=== PATIENT | male | born 1940 | race Caucasian/White ===

== ENCOUNTER 2017-09-06 13:42 | Inpatient (IN) | payer MEDICARE ==
[2017-09-06] VITALS (9 sets, daily range): BP systolic 134–241; BP diastolic 86–110; PULSE 77–96; RESP 16–20; TEMP 98.5–99; O2SAT 93–97
[~2017-09-06] VITALS: Ht 157.5 cm; Wt 81.9 kg
[2017-09-06] MEDS ORDERED: LABETALOL HCL 100 MG/20 ML VIAL IV PUSH ONE (14:15)
--- NOTE | 2017-09-06 14:15 | PD ---
HPI Chief Complaint: Hypertension Time Seen by Provider: 13:53 Travel History International Travel<30 days: No Contact w/Intl Traveler<30days: No Traveled to known affect area: No History of Present Illness HPI The patient is a 77-year-old male who presents to the emergency department for hypertension and dull vision. The patient states he has a 2-3 year history of hypertension, checks his blood pressure at [place] normally gets reading somewhere between 180 and 190 for a systolic. However, the patient currently takes no medications for hypertension. The patient states he was involved in an argument with his physician 3 years ago and has not sought medical care since the argument. The patient notes over the last 2 weeks he has had double vision, present with both eyes open, absent with one eye closed. He denies any headache, chest pain, shortness breath, nausea, vomiting, or abdominal pain. The double vision is only present when both eyes are open. He does have a history of an ocular problem with the left eye which has started recently. He denies any focal weakness of the upper or lower extremities. He denies any change in sensation of the upper or lower extremities. The patient's diplopia is described as a horizontal diplopia hand by hand as opposed to hand on top of hand when looking straight. PFSH Past Medical History Narrative Medical Hypertension, CVA Past Surgical History Narrative Surgical Noncontributory Social History Tobacco Use: No (quit) Allergies-Medications (Allergen,Severity, Reaction): Coded Allergies: No Known Allergies (Verified Allergy, Unknown, 09/06/17) Review of Systems Except as stated in HPI: all other systems reviewed are Neg Eyes: Positive: Diploplia, No: Photophobia, Redness, Pain, Blindness HENT: No: Headaches Cardiovascular: No: Chest Pain or Discomfort Respiratory: No: Shortness of Breath Gastrointestinal: No: Nausea, Vomiting, Abdominal Pain Musculoskeletal: No: Weakness Neurologic: No: Dizziness, Focal Abnormalities, Headache, Change in Mentation, Paresthesia, Sensory Disturbance Physical Exam Narrative GENERAL: Awake, alert, pleasant 77-year-old male who appears his stated age and is in no acute respiratory distress. SKIN: Focused skin assessment warm/dry. HEAD: Atraumatic. Normocephalic. EYES: Pupils equal and round. Pupils are 3 mm bilateral and reactive. EOMs are intact. Patient is able to see fingers at a distance of 2 feet from the left eye and right eye individually, however, with both eyes open he states he sees double the digits. The patient appears to have esotropia of the left eye. ENT: No nasal bleeding or discharge. Mucous membranes pink and moist. NECK: Trachea midline. No JVD. CARDIOVASCULAR: Regular rate and rhythm. No murmur appreciated. RESPIRATORY: No accessory muscle use. Clear to auscultation. Breath sounds equal bilaterally. GASTROINTESTINAL: Abdomen soft, non-tender, nondistended. MUSCULOSKELETAL: No obvious deformities. No clubbing. No cyanosis. No edema. NEUROLOGICAL: Awake and alert. No obvious cranial nerve deficits. Motor grossly within normal limits. Normal speech. EOMs are intact. No drift of the upper or lower extremities. Finger to nose is normal. [id number] is normal. Sensation is symmetric on the arms, legs, and face. PSYCHIATRIC: Appropriate mood and affect; insight and judgment normal. Data Data Last Documented VS Vital Signs Date Time Temp Pulse Resp B/P (MAP) Pulse Ox O2 Delivery O2 Flow Rate FiO2 09/06/17 16:52 96 20 189/89 (122) 95 09/06/17 16:14 Room Air 09/06/17 13:44 98.5 Orders Orders Complete Blood Count With Diff (09/06/17 14:03) Comprehensive Metabolic Panel (09/06/17 14:03) Prothrombin Time / Inr (Pt) (09/06/17 14:03) Act Partial Throm Time (Ptt) (09/06/17 14:03) Ct Brain W/O Iv Contrast(Rout) (09/06/17 14:03) Ecg Monitoring (09/06/17 14:03) Iv Access Insert/Monitor (09/06/17 14:03) Oximetry (09/06/17 14:03) Sodium Chloride 0.9% Flush (Ns Flush) (09/06/17 14:15) Labetalol Inj (Trandate Inj) (09/06/17 14:15) Mri Brain W/O Contrast (09/06/17 ) Aspirin (Aspirin) (09/06/17 17:00) Admit Order (Ed Use Only) (09/06/17 17:00) Labs Laboratory Tests Test 09/06/17 14:10 White Blood Count 7.2 TH/MM3 Red Blood Count 4.49 MIL/MM3 Hemoglobin 10.5 GM/DL Hematocrit 33.7 % Mean Corpuscular Volume 75.1 FL Mean Corpuscular Hemoglobin 23.5 PG Mean Corpuscular Hemoglobin Concent 31.3 % Red Cell Distribution Width 14.5 % Platelet Count 302 TH/MM3 Mean Platelet Volume 8.0 FL Neutrophils (%) (Auto) 63.5 % Lymphocytes (%) (Auto) 23.1 % Monocytes (%) (Auto) 8.8 % Eosinophils (%) (Auto) 4.0 % Basophils (%) (Auto) 0.6 % Neutrophils # (Auto) 4.6 TH/MM3 Lymphocytes # (Auto) 1.7 TH/MM3 Monocytes # (Auto) 0.6 TH/MM3 Eosinophils # (Auto) 0.3 TH/MM3 Basophils # (Auto) 0.0 TH/MM3 CBC Comment AUTO DIFF Differential Comment AUTO DIFF CONFIRMED Prothrombin Time 10.3 SEC Prothromb Time International Ratio 0.9 RATIO Activated Partial Thromboplast Time 25.9 SEC Blood Urea Nitrogen 15 MG/DL Creatinine 0.81 MG/DL Random Glucose 77 MG/DL Total Protein 7.5 GM/DL Albumin 3.7 GM/DL Calcium Level 8.6 MG/DL Alkaline Phosphatase 52 U/L Aspartate Amino Transf (AST/SGOT) 40 U/L Alanine Aminotransferase (ALT/SGPT) 63 U/L Total Bilirubin 0.3 MG/DL Sodium Level 140 MEQ/L Potassium Level 3.9 MEQ/L Chloride Level 104 MEQ/L Carbon Dioxide Level 31.5 MEQ/L Anion Gap 5 MEQ/L Estimat Glomerular Filtration Rate 93 ML/MIN MDM Medical Decision Making Medical Screen Exam Complete: Yes Emergency Medical Condition: Yes Medical Record Reviewed: Yes Interpretation(s) Laboratory Tests Test 09/06/17 14:10 White Blood Count 7.2 TH/MM3 Red Blood Count 4.49 MIL/MM3 Hemoglobin 10.5 GM/DL Hematocrit 33.7 % Mean Corpuscular Volume 75.1 FL Mean Corpuscular Hemoglobin 23.5 PG Mean Corpuscular Hemoglobin Concent 31.3 % Red Cell Distribution Width 14.5 % Platelet Count 302 TH/MM3 Mean Platelet Volume 8.0 FL Neutrophils (%) (Auto) 63.5 % Lymphocytes (%) (Auto) 23.1 % Monocytes (%) (Auto) 8.8 % Eosinophils (%) (Auto) 4.0 % Basophils (%) (Auto) 0.6 % Neutrophils # (Auto) 4.6 TH/MM3 Lymphocytes # (Auto) 1.7 TH/MM3 Monocytes # (Auto) 0.6 TH/MM3 Eosinophils # (Auto) 0.3 TH/MM3 Basophils # (Auto) 0.0 TH/MM3 CBC Comment AUTO DIFF Differential Comment AUTO DIFF CONFIRMED Prothrombin Time 10.3 SEC Prothromb Time International Ratio 0.9 RATIO Activated Partial Thromboplast Time 25.9 SEC Blood Urea Nitrogen 15 MG/DL Creatinine 0.81 MG/DL Random Glucose 77 MG/DL Total Protein 7.5 GM/DL Albumin 3.7 GM/DL Calcium Level 8.6 MG/DL Alkaline Phosphatase 52 U/L Aspartate Amino Transf (AST/SGOT) 40 U/L Alanine Aminotransferase (ALT/SGPT) 63 U/L Total Bilirubin 0.3 MG/DL Sodium Level 140 MEQ/L Potassium Level 3.9 MEQ/L Chloride Level 104 MEQ/L Carbon Dioxide Level 31.5 MEQ/L Anion Gap 5 MEQ/L Estimat Glomerular Filtration Rate 93 ML/MIN Last Impressions Head CT 09/06/17 1403 Signed Impressions: Service Date/Time: Wednesday, September 06, 2017 14:21 - CONCLUSION: No acute intracranial abnormality. Aaron Woodward MD Brain MRI 09/06/17 0000 Signed Impressions: Service Date/Time: Wednesday, September 06, 2017 16:13 - CONCLUSION: 1. Minimal T2 signal abnormalities and restricted diffusion in the region of the left thalamus consistent with acute infarction. 2. The minimal nonspecific white matter changes. Aaron Woodward MD Differential Diagnosis Differential diagnosis includes cranial nerve palsy, esotropia, CVA, TIA, intracranial hemorrhage, hypertensive urgency, hypertensive emergency. Narrative Course IV was established, labs are drawn and sent, and the patient was placed on cardiac telemetry monitoring and continuous pulse oximetry monitoring. CT the brain was obtained. The patient was administered labetalol 20 mg intravenously. The patient was reevaluated at 2:20 PM, his diplopia has resolved with both eyes open. I'm unsure if this is related to cranial nerve palsy versus infarct. The patient has no current symptoms at 2:[address] of the head reveals no acute intracranial abnormality. The patient appears to have possible cranial nerve involvement of the 6 cranial nerve with estropia of the left eye. Therefore, MRI was ordered to rule out brainstem/chanda/ midbrain infarct. Laboratory evaluation reveals a hemoglobin of 10.5 and an AST of 40, otherwise labs are unremarkable. Creatinine is normal. MRI of the brain reveals minimal T2 signal abnormalities and restricted diffusion in the region of the left thalamus consistent with acute infarction. Therefore, the on-call medical team was paged for admission. The patient's blood pressure came down to 189/89, therefore, no further reduction was obtained as the patient had an acute infarction. The patient was administered aspirin. The patient will be admitted to the on-call medical service and will benefit from echocardiogram, carotid ultrasound, and lipid panel. The patient is agreeable to admission. Physician Communication Physician Communication [facility] were paged for admission. I discussed the patient with Dr. Clements who agrees with admission. Diagnosis Primary Impression: CVA (cerebral vascular accident) Qualified Codes: I63.9 - Cerebral infarction, unspecified Admitting Information Admitting Physician Requests: Admit Condition: Stable Frederick Omalley MD Sep 06, 2017 14:15
[2017-09-06 14:26] LABS: AUTOMATED NEUTROPHIL # 4.6 TH/MM3 (1.8-7.7); BASOPHIL % 0.6 % (0.0-2.0); EOSINOPHIL # 0.3 TH/MM3 (0-0.4); HEMATOCRIT 33.7 % (39.0-51.0); LYMPH % 23.1 % (9.0-44.0); LYMPHOCYTE # 1.7 TH/MM3 (1.0-4.8); MEAN CELL VOLUME 75.1 FL (80.0-100.0); MEAN CORPUSCULAR HEMOGLOBIN 23.5 PG (27.0-34.0); MEAN CORPUSCULAR HGB CONC 31.3 % (32.0-36.0); MONO % 8.8 % (0.0-8.0); NEUT % 63.5 % (16.0-70.0); PLATELET COUNT 302 TH/MM3 (150-450); RED BLOOD COUNT 4.49 MIL/MM3 (4.50-5.90); RED CELL DISTRIBUTION WIDTH 14.5 % (11.6-17.2); WHITE BLOOD COUNT 7.2 TH/MM3 (4.0-11.0)
[2017-09-06 14:29] LABS: HEMO FLAGS AUTO DIFF
--- NOTE | 2017-09-06 14:39 | RADRPT ---
EXAM DATE/TIME: 09/06/2017 14:21 [facility] COMPARISON: No previous studies available for comparison. INDICATIONS : Binocular vision. Evaluate for cerebrovascular accident. RADIATION DOSE: 67.04 CTDIvol (mGy) MEDICAL HISTORY : Cerebrovascular disease. Hypertension. SURGICAL HISTORY : None. ENCOUNTER: Initial ACUITY: 2 weeks PAIN SCALE: 0/10 LOCATION: cranial TECHNIQUE: Multiple contiguous axial images were obtained of the head. Using automated exposure control and adj ustment of the mA and/or kV according to patient size, radiation dose was kept as low as reasonably a chievable to obtain optimal diagnostic quality images. DICOM format image data is available electro nically for review and comparison. FINDINGS: CEREBRUM: The ventricles are normal for age. No evidence of midline shift, mass lesion, hemorrhage or acute in farction. No extra-axial fluid collections are seen. POSTERIOR FOSSA: The cerebellum and brainstem are intact. The 4th ventricle is midline. The cerebellopontine angle i s unremarkable. EXTRACRANIAL: The visualized portion of the orbits is intact. SKULL: The calvaria is intact. No evidence of skull fracture. CONCLUSION: No acute intracranial abnormality. Aaron Woodward MD on September 06, 2017 at 14:37 Board Certified Radiologist. This report was verified electronically.
[2017-09-06 14:41] LABS: APTT (PATIENT) 25.9 SEC (24.3-30.1); INTERNATIONAL NORMALIZED RATIO 0.9 RATIO; PROTHROMBIN TIME - PATIENT 10.3 SEC (9.8-11.6)
[2017-09-06 14:50] LABS: CHLORIDE 104 MEQ/L (98-107); POTASSIUM 3.9 MEQ/L (3.5-5.1); SODIUM (NA) 140 MEQ/L (136-145)
[2017-09-06 14:54] LABS: ANION GAP 5 MEQ/L (5-15); BICARBONATE 31.5 MEQ/L (21.0-32.0); BLOOD UREA NITROGEN 15 MG/DL (7-18)
[2017-09-06 14:57] LABS: ALT (GPT) 63 U/L (12-78); AST (GOT) 40 U/L (15-37); GLOMERULAR FILTRATION RATE 93 ML/MIN (>89)
[2017-09-06 14:58] LABS: TOTAL BILIRUBIN ADULT 0.3 MG/DL (0.2-1.0)
[2017-09-06 15:00] LABS: ALKALINE PHOSPHATASE 52 U/L (45-117)
[2017-09-06 15:03] LABS: SCAN/DIFF AUTO DIFF CONFIRMED
--- NOTE | 2017-09-06 16:26 | RADRPT ---
EXAM DATE/TIME: 09/06/2017 16:13 This report includes an Addendum and supersedes previous reports for this exam. [facility] COMPARISON: CT BRAIN W/O CONTRAST, September 06, 2017, 14:21. INDICATIONS : CVA. Double vision. MEDICAL HISTORY : Stroke SURGICAL HISTORY : None. ENCOUNTER: Initial ACUITY: 1 day PAIN SCORE: 0/10 LOCATION: head TECHNIQUE: Multiplanar, multisequence MRI of the brain was performed without contrast. FINDINGS: CEREBRUM: Minimal T2 signal abnormality in the region of the left thalamus. The ventricles are normal for age. No evidence of midline shift, mass lesion, hemorrhage or acute infarction. No extraaxial fluid jackeline ections are seen. The pituitary gland and suprasellar cistern are normal in configuration. WHITE MATTER: Scattered areas of high focal flair signal abnormalities are seen in the white matter. POSTERIOR FOSSA: The cerebellum and brainstem are intact. The 4th ventricle is midline. The cerebellopontine angle is unremarkable. The cerebellar tonsils are normal in position. DIFFUSION IMAGING: Minimal restricted diffusion in the region of the left thalamus consistent with acute infarction. EXTRACRANIAL: The visualized portions of the orbits and paranasal sinuses are unremarkable. CONCLUSION: 1. Minimal T2 signal abnormalities and restricted diffusion in the region of the left thalamus consis tent with acute infarction. 2. The minimal nonspecific white matter changes. Aaron Woodward MD on September 06, 2017 at 16:20 Board Certified Radiologist. This report was verified electronically. ADDENDUM: On further review note is made of encephalomalacia and hemosiderin in the right cerebellar hemisphere consistent with remote insult/hemorrhage. [place] MD on September 07, 2017 at 16:20 Board Certified Radiologist. This report was verified electronically.
[2017-09-06] MEDS ORDERED: ASPIRIN 325 MG TAB PO ONE (17:00)
--- NOTE | 2017-09-06 17:29 | HHI.HP ---
[facility] No Primary Care Physician Admission Diagnosis CVA, accelerated hypertension, binocular diplopia Diagnoses: Travel History International Travel<30 Days: No Contact w/Intl Traveler <30 Da: No Traveled to Known Affected Are: No History of Present Illness This is a pleasant 77-year-old [place]ese [place] male with past medical history of CVA 10 years prior without residual deficits and hypertension who presents to the ER today complaining of double vision. The patient has noted horizontal double vision throughout the day. It goes away if he covers one eye. He is still having the symptoms. He denies slurred speech, paresthesias, unilateral weakness. In the emergency department a brain MRI which was ordered which revealed an acute left thalamic CVA. Systolic blood pressure was quite elevated at 240 initially and he received labetalol IV. Symptoms moderate no palliative or provocative factors. Patient does not take blood pressure medication. He does not see a primary care physician since he had an argument with his 3 years ago. Patient does not take aspirin. His states he had a stroke 10 years ago and was on blood thinners at that time but she cannot remember which. He does not smoke although his does smoke in the house. Review of Systems Constitutional: DENIES: Fever, Chills Eyes: COMPLAINS OF: Diplopia, DENIES: Vision loss Ears, nose, mouth, throat: DENIES: Throat pain, Hoarseness Respiratory: DENIES: Cough, Shortness of breath Cardiovascular: DENIES: Chest pain, Palpitations Gastrointestinal: DENIES: Abdominal pain, Vomiting Genitourinary: DENIES: Urgency, Dysuria Musculoskeletal: DENIES: Back pain, Neck pain Integumentary: DENIES: Rash Hematologic/lymphatic: DENIES: Lymphadenopathy Neurologic: DENIES: Abnormal gait, Headache Psychiatric: DENIES: Anxiety, Confusion Past Family Social History Past Medical History Hypertension Previous CVA Past Surgical History None Allergies: Coded Allergies: No Known Allergies (Verified Allergy, Unknown, 09/06/17) Family History Negative for stroke. Social History As per history of present illness. Patient does not smoke. Physical Exam Vital Signs Vital Signs Date Time Temp Pulse Resp B/P (MAP) Pulse Ox O2 Delivery O2 Flow Rate FiO2 09/06/17 16:52 96 20 189/89 (122) 95 09/06/17 16:14 84 16 211/103 (139) 96 Room Air 09/06/17 15:16 78 20 189/101 (130) 97 09/06/17 14:33 77 16 209/101 (137) 97 Room Air 09/06/17 14:08 96 Room Air 09/06/17 13:44 98.5 84 16 241/110 (153) 96 Physical Exam GENERAL: This is a well-nourished, well-developed patient, in no apparent distress. SKIN: No rashes, ecchymoses or lesions. Cool and dry. HEAD: Atraumatic. Normocephalic. EYES: Pupils equal round and reactive. Very subtle inability to fully abduct the right eye. No scleral icterus. No injection or drainage. ENT: Nose without bleeding, purulent drainage or septal hematoma. Throat without erythema, tonsillar hypertrophy or exudate. Uvula midline. Airway patent. NECK: Trachea midline. No JVD or lymphadenopathy. Supple, nontender, no meningeal signs. CARDIOVASCULAR: Regular rate and rhythm without murmurs, gallops, or rubs. RESPIRATORY: Clear to auscultation. Breath sounds equal bilaterally. No wheezes , rales, or rhonchi. GASTROINTESTINAL: Abdomen soft, non-tender, nondistended. No hepato-splenomegaly , or palpable masses. No guarding. MUSCULOSKELETAL: Extremities without clubbing, cyanosis, or edema. No joint tenderness, effusion, or edema noted. NEUROLOGICAL: Awake and alert and oriented. Cranial nerves II through XII intact. Motor and sensory grossly within normal limits. Five out of 5 muscle strength in all muscle groups. Normal speech. Laboratory Laboratory Tests Test 09/06/17 14:10 White Blood Count 7.2 Red Blood Count 4.49 Hemoglobin 10.5 Hematocrit 33.7 Mean Corpuscular Volume 75.1 Mean Corpuscular Hemoglobin 23.5 Mean Corpuscular Hemoglobin Concent 31.3 Red Cell Distribution Width 14.5 Platelet Count 302 Mean Platelet Volume 8.0 Neutrophils (%) (Auto) 63.5 Lymphocytes (%) (Auto) 23.1 Monocytes (%) (Auto) 8.8 Eosinophils (%) (Auto) 4.0 Basophils (%) (Auto) 0.6 Neutrophils # (Auto) 4.6 Lymphocytes # (Auto) 1.7 Monocytes # (Auto) 0.6 Eosinophils # (Auto) 0.3 Basophils # (Auto) 0.0 CBC Comment AUTO DIFF Differential Comment AUTO DIFF CONFIRMED Prothrombin Time 10.3 Prothromb Time International Ratio 0.9 Activated Partial Thromboplast Time 25.9 Blood Urea Nitrogen 15 Creatinine 0.81 Random Glucose 77 Total Protein 7.5 Albumin 3.7 Calcium Level 8.6 Alkaline Phosphatase 52 Aspartate Amino Transf (AST/SGOT) 40 Alanine Aminotransferase (ALT/SGPT) 63 Total Bilirubin 0.3 Sodium Level 140 Potassium Level 3.9 Chloride Level 104 Carbon Dioxide Level 31.5 Anion Gap 5 Estimat Glomerular Filtration Rate 93 Result Diagram: 09/06/17 1410 09/06/17 1410 Imaging Last Impressions Head CT 09/06/17 1403 Signed Impressions: Service Date/Time: Wednesday, September 06, 2017 14:21 - CONCLUSION: No acute intracranial abnormality. Aaron Woodward MD Brain MRI 09/06/17 0000 Signed Impressions: Service Date/Time: Wednesday, September 06, 2017 16:13 - CONCLUSION: 1. Minimal T2 signal abnormalities and restricted diffusion in the region of the left thalamus consistent with acute infarction. 2. The minimal nonspecific white matter changes. Aaron Woodward MD Capsalvadori VTE Risk Assessment Caprini VTE Risk Assessment: Mod/High Risk (score >= 2) Caprini Risk Assessment Model Point Value = 1 Point Value = 2 Point Value = 3 Point Value = 5 Age 41-60 Minor surgery BMI > 25 kg/m2 Swollen legs Varicose veins or History of unexplained or recurrent spontaneous Oral contraceptives or hormone replacement Sepsis (< 1 month) Serious lung disease, including pneumonia (< 1 month) Abnormal pulmonary function Acute myocardial infarction Congestive heart failure (< 1 month) History of inflammatory bowel disease Medical patient at bed rest Age 61-74 Arthroscopic surgery Major open surgery (> 45 min) Laparoscopic surgery (> 45 min) Malignancy Confined to bed (> 72 hours) Immobilizing plaster cast Central venous access Age >= 75 History of VTE Family history of VTE Factor V Leiden Prothrombin [id number] Lupus anticoagulant Anticardiolipin antibodies Elevated serum homocysteine Heparin-induced thrombocytopenia Other congenital or acquired thrombophilia Stroke (< 1 month) Elective arthroplasty Hip, pelvis, or leg fracture Acute spinal cord injury (< 1 month) Prophylaxis Regimen Total Risk Factor Score Risk Level Prophylaxis Regimen 0-1 Low Early ambulation 2 Moderate Order ONE of the following: *Sequential Compression Device (SCD) *Heparin 5000 units SQ BID 3-4 Higher Order ONE of the following medications: *Heparin 5000 units SQ TID *Enoxaparin/Lovenox 40 mg SQ daily (WT < 150 kg, CrCl > 30 mL/min) *Enoxaparin/Lovenox 30 mg SQ daily (WT < 150 kg, CrCl > 10-29 mL/min) *Enoxaparin/Lovenox 30 mg SQ BID (WT < 150 kg, CrCl > 30 mL/min) AND/OR *Sequential Compression Device (SCD) 5 or more Highest Order ONE of the following medications: *Heparin 5000 units SQ TID (Preferred with Epidurals) *Enoxaparin/Lovenox 40 mg SQ daily (WT < 150 kg, CrCl > 30 mL/min) *Enoxaparin/Lovenox 30 mg SQ daily (WT < 150 kg, CrCl > 10-29 mL/min) *Enoxaparin/Lovenox 30 mg SQ BID (WT < 150 kg, CrCl > 30 mL/min) AND *Sequential Compression Device (SCD) Assessment and Plan Problem List: (1) CVA (cerebral vascular accident) ICD Code: I63.9 - Cerebral infarction, unspecified Status: Acute Assessment and Plan -Acute left thalamic CVA - likely due to uncontrolled hypertension. We'll admit check Doppler carotid, Holter, echocardiogram. Permissive hypertension for now. Check fasting lipid profile. Put him on aspirin for now. Consult neurology. -Diplopia. Questionable mild right sixth nerve palsy. Neurology consulted for input. -Accelerated Hypertension. Permissive for now. -DVT prophylaxis with SCDs Problem Qualifiers (1) CVA (cerebral vascular accident): Qualified Codes: I63.9 - Cerebral infarction, unspecified Linnea Clements MD Sep 06, 2017 17:29
[2017-09-06] MEDS ORDERED: SODIUM CHLORIDE 0.9% FLUSH 5 ML FLUSH IV FLUSH PRN (17:30)
[2017-09-06] MEDS ORDERED: GLUCAGON 1 MG/ML VIAL OTHER PRN (17:30)
[2017-09-06] MEDS ORDERED: ENALAPRILAT 1.25 MG/ML VIAL IV PUSH PRN (17:30)
[2017-09-06] MEDS ORDERED: DEXTROSE 50% IN WATER 50 ML VIAL(D50) IV PUSH PRN (17:30)
[2017-09-06] MEDS: INSULIN ASPART SUPPLEMENTAL SCALE SQ SCH (21:00)
[2017-09-06] MEDS: SODIUM CHLORIDE 0.9% FLUSH 5 ML FLUSH IV FLUSH SCH (21:18)
[2017-09-06] MEDS: PRAVASTATIN SOD 40 MG TAB PO SCH (21:18)
[2017-09-06 22:14] LABS: HEMOGLOBIN A1a 1.1 %; HEMOGLOBIN A1b 1.6 %; HEMOGLOBIN Ao 84.8 %; HEMOGLOBIN LA1C 1.8 %; HEMOGLOBIN P3 3.8 %
[2017-09-07] VITALS (8 sets, daily range): BP systolic 134–189; BP diastolic 85–100; PULSE 72–82; RESP 16–20; TEMP 97.9–98.6; O2SAT 91–95
[2017-09-07] MEDS: INSULIN ASPART SUPPLEMENTAL SCALE SQ SCH ×4 (08:00→20:53)
[2017-09-07] MEDS: ASPIRIN 325 MG TAB PO SCH (08:33)
[2017-09-07] MEDS: SODIUM CHLORIDE 0.9% FLUSH 5 ML FLUSH IV FLUSH SCH ×2 (08:34→20:54)
[2017-09-07 12:19] LABS: HDL CHOLESTEROL 35.8 MG/DL (40.0-60.0)
--- NOTE | 2017-09-07 12:51 | RADRPT ---
EXAM DATE/TIME: 09/07/2017 11:50 [facility] COMPARISON: No previous studies available for comparison. INDICATIONS : Cerebrovascular accident. MEDICAL HISTORY : Hypertension. Cerebrovascular accident. SURGICAL HISTORY : None. ENCOUNTER: Initial ACUITY: 1 day PAIN SCORE: 0/10 LOCATION: Bilateral neck PEAK SYSTOLIC VELOCITIES (cm/sec): ICA/CCA RATIO: Right: 1.5 Left: 1.8 ICA: Right: 116 Left: 122 CCA: Right: 74 Left: 68 ECA: Right: 149 Left: 66 VERTEBRAL: Right: 47 antegrade Left: 30 antegrade Elevated flow velocities and ICA/CCA ratios have been found to correlate with increased degrees of vessel stenosis, calculated as percentage of diameter relative to a normal segment of distal ICA/CCA FINDINGS: RIGHT CAROTID: No significant stenosis is visualized. The waveforms are within normal limits. LEFT CAROTID: No significant stenosis is visualized. The waveforms are within normal limits. VERTEBRAL ARTERIES: Antegrade flow is seen in both vertebral arteries. MISCELLANEOUS: None. CONCLUSION: No evidence of hemodynamically significant carotid stenosis. Tomás Walker MD on September 07, 2017 at 12:49 Board Certified Radiologist. This report was verified electronically.
--- NOTE | 2017-09-07 15:24 | ECHRPT ---
Indication: Transient cerebral ischemic attack, unspecified CONCLUSIONS Normal left ventricular size. Mild concentric left ventricular hypertrophy. EF=65% The aortic root and proximal ascending aorta are not well visualized. Trace-mild mitral valve regurgitation. The transthoracic study is normal by two-dimensional, color flow imaging and Doppler interrogation. The transthoracic study is normal by two-dimensional, color flow imaging and Doppler interrogation. BP: / HR: Rhythm: MEASUREMENTS (Male / Female) Normal Values Technical Quality: 2D ECHO LV Diastolic Diameter PLAX 4.1 cm 4.2 - 5.9 / 3.9 - 5.3 cm LV Systolic Diameter PLAX 3.1 cm IVS Diastolic Thickness 1.4 cm 0.6 - 1.0 / 0.6 - 0.9 cm LVPW Diastolic Thickness 1.3 cm 0.6 - 1.0 / 0.6 - 0.9 cm LV Relative Wall Thickness 0.7 RV Internal Dim ED PLAX 2.1 cm M-MODE Aortic Root Diameter MM 3.2 cm LA Systolic Diameter MM 3.5 cm LA Ao Ratio MM 1.1 AV Cusp Separation MM 1.6 cm DOPPLER Mitral E Point Velocity 99.1 cm/s Mitral A Point Velocity 124.0 cm/s Mitral E to A Ratio 0.8 FINDINGS LEFT VENTRICLE Normal left ventricular size. The left ventricular systolic function is normal with an estimated ejection fraction in the range of 60-65%. Mild concentric left ventricular hypertrophy. RIGHT VENTRICLE Normal right ventricular size and systolic function. LEFT ATRIUM The left atrial size is normal. RIGHT ATRIUM The right atrial size is normal. ATRIAL SEPTUM Normal atrial septal thickness without atrial level shunting by limited color doppler interrogation. AORTA The aortic root and proximal ascending aorta are not well visualized. MITRAL VALVE Structurally normal mitral valve. Trace mitral valve regurgitation. AORTIC VALVE Trileaflet aortic valve. No aortic valve stenosis or regurgitation. TRICUSPID VALVE Structurally normal tricuspid valve. No tricuspid valve stenosis or regurgitation. PULMONARY VALVE No pulmonary valve regurgitation or stenosis. VESSELS The inferior vena cava is normal in size. PERICARDIUM No pericardial effusion. Oleg Gonzales MD, FACC, [facility] [place] (Electronically Signed) Final Date:07 September 2017 15:23
--- NOTE | 2017-09-07 15:35 | MB ---
cc: JAYLA PARDO DATE OF CONSULTATION: 09/07/2017. HISTORY OF PRESENT ILLNESS: 77-year-old right-handed man with possibly a right cerebellar hemorrhage about ten years ago who was seen in [facility] possibly had surgery on his brain according to his girlfriend. He does not take an aspirin a day and for the last two days he has noticed double vision. He had a carotid ultrasound here that was normal. MRI of the brain shows old right cerebellar encephalomalacia with some old blood products. CT scan of the brain just showed the old encephalomalacia in the right cerebellum. No vertigo or asymmetrical weakness or numbness. SOCIAL HISTORY: Nonsmoker and non-drinker. He lives with his girlfriend. He is originally from [place]. FAMILY HISTORY: Family history is negative for cancer, seizure or stroke. REVIEW OF SYSTEMS: He denies any hypertension, diabetes, hypercholesterolemia, myocardial infarction, CABG, stents, angioplasty, atrial fibrillation, coumadin, renal, hepatic, or pulmonary disease, thyroid disease, lupus, ulcer, cancer or seizure. No headache. PAST MEDICAL HISTORY: 1. Hypertension. 2. Stroke. ALLERGIES: NO KNOWN DRUG ALLERGIES. MEDICATIONS: He tells me he does note take an aspirin a day. CURRENT MEDICATIONS: 1. He was put on an aspirin. 2. He is on Pravachol. PHYSICAL EXAMINATION: VITAL SIGNS: On exam, his blood pressures are high. 165/85 even as high as 241/110. NECK: There are no carotid or vertebral bruits. HEART: Regular rhythm. I do not detect a murmur. NEUROLOGICAL EXAMINATION: Pupils are equal. Visual bertrand are full. Extraocular movements show what appears to be a partial nerve palsy. He does not see double vision up close, just far away, and he does not see it if he is looking to the left, just if he is looking to the right. No nystagmus was noted. Face was symmetric with normal sensation. Tongue was midline. There is no drift. He had normal strength in upper and lower extremities bilaterally. DTRs are absent throughout. Toes are downgoing bilaterally. Pin prick is intact throughout. Speech is fluent. He is not aphasic. LABORATORY DATA: CBC showed a mild anemia only. Basic metabolic profile was normal. Hemoglobin A1c 6.4. Liver function tests are essentially normal. LDL cholesterol normal. Coags normal. IMAGING STUDIES: An MRI of the brain is noted; it was done without contrast. There was one small spot on the MRI in the right chanda and around the tegmentum which may have been a small infarct, I think probably unlikely, but it is a poor quality diffusion scan. IMPRESSION: Right nerve palsy, incomplete. PLAN: We will check some blood work on him. I do want to check an MRA to make sure there is no aneurysm in the cavernous sinus and an MRI of brain with contrast. Will check some additional blood work on him including his thyroid and a sedimentation rate. Put him on a baby aspirin for now. I would hold off on the statin for now. His hemoglobin A1c is up a little bit, although his glucose was only 77. It is possible it could be somewhat of a diabetic III nerve, although that is usually seen in people who are a little bit more diabetic than he has been. He could probably be discharged if his repeat MRI and the MRA are negative, as long as this is closely looked at and they can call me with the film results and I can look at the films to make sure there is nothing around the course of the nerve. MD KETTY Lund/DAVID /3:04 PM /3:27 PM
--- NOTE | 2017-09-07 16:05 | HHI.PR ---
Subjective Remarks Still has diplopia. No other symptoms. Objective Vitals Vital Signs Date Time Temp Pulse Resp B/P (MAP) Pulse Ox O2 Delivery O2 Flow Rate FiO2 09/07/17 15:47 98.6 78 16 178/100 (126) 94 09/07/17 11:28 94 09/07/17 11:26 98.6 82 16 165/85 (111) 94 09/07/17 08:00 98.6 80 16 185/95 (125) 91 09/07/17 08:00 82 09/07/17 04:00 97.9 72 20 170/85 (113) 95 09/07/17 00:00 98.5 78 18 134/86 (102) 93 09/06/17 20:40 97 21 09/06/17 20:18 78 09/06/17 20:00 99.0 78 20 189/99 (129) 94 09/06/17 18:09 09/06/17 16:52 96 20 189/89 (122) 95 09/06/17 16:14 84 16 211/103 (139) 96 Room Air I/O 09/06/17 09/06/17 09/06/17 09/07/17 09/07/17 09/07/17 07:00 15:00 23:00 07:00 15:00 23:00 Intake Total 240 ml 720 ml Output Total 900 ml 350 ml Balance -660 ml 370 ml Intake Oral 240 ml 720 ml Output Urine Total 900 ml 350 ml # Voids 1 2 # Bowel Movements 0 Result Diagram: 09/06/17 1410 09/06/17 1410 Objective Remarks GENERAL: This is a well-nourished, well-developed patient, in no apparent distress. SKIN: No rashes, ecchymoses or lesions. Cool and dry. HEAD: Atraumatic. Normocephalic. EYES: Pupils equal round and reactive. Very subtle inability to fully abduct the right eye. No scleral icterus. No injection or drainage. ENT: Throat without erythema, tonsillar hypertrophy or exudate. Uvula midline. Airway patent. NECK: Trachea midline. No JVD or lymphadenopathy. Supple, nontender, no meningeal signs. CARDIOVASCULAR: Regular rate and rhythm without murmurs, gallops, or rubs. RESPIRATORY: Clear to auscultation. Breath sounds equal bilaterally. No wheezes , rales, or rhonchi. GASTROINTESTINAL: Abdomen soft, non-tender, nondistended. MUSCULOSKELETAL: Extremities without clubbing, cyanosis, or edema. NEUROLOGICAL: Awake and alert and oriented. A/P Problem List: (1) CVA (cerebral vascular accident) ICD Code: I63.9 - Cerebral infarction, unspecified Status: Acute (2) Diplopia ICD Code: H53.2 - Diplopia (3) Cranial nerve palsy ICD Code: H49.20 - Sixth [abducent] nerve palsy, unspecified eye (4) Hypertension, accelerated ICD Code: I10 - Essential (primary) hypertension (5) Borderline type 2 diabetes mellitus ICD Code: R73.03 - Prediabetes Assessment and Plan -Acute left thalamic CVA -discussed with Dr. Guerrero who reviewed the MRI and did not feel this was an acute stroke however MRI with poor quality image. Repeat brain MRI has been ordered. Doppler carotid is negative. Holter, echocardiogram pending. lipid profile reviewed LDL 93. Put him on aspirin for now. -Borderline DM - a1c 6.4. place on ADA diet. -Diplopia due to mild right sixth nerve palsy. Neurology following. Brain MRA ordered. -Accelerated Hypertension. Start lisinopril 10 mg BID, HCTZ 25 mg daily. -DVT prophylaxis with SCDs Problem Qualifiers (1) CVA (cerebral vascular accident): Qualified Codes: I63.9 - Cerebral infarction, unspecified Linnea Clements MD Sep 07, 2017 16:05
--- NOTE | 2017-09-07 17:00 | RADRPT ---
EXAM DATE/TIME: 09/07/2017 16:28 [facility] COMPARISON: No previous studies available for comparison. INDICATIONS : CVA. MEDICAL HISTORY : Hypertension. Cerebrovascular accident. SURGICAL HISTORY : None. ENCOUNTER: Subsequent ACUITY: 2 day PAIN SCORE: 3/10 LOCATION: cranial Please note a normal MRA of the brain does not entirely exclude the possibility of a small aneurysm, nor the possibility of distal intracranial vessel disease. TECHNIQUE: 3D time of flight MRA was performed. Source images, multiplanar STS MIP, and 3D volume MIP reconstru ctions were reviewed. FINDINGS: There is excellent visualization of the major intracranial arteries out to the second-order branch ve ssels. There is no evidence for aneurysm, vessel truncation or stenosis, and no evidence for vascula r malformation. 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 There is mild atheroscle rosis of the posterior cerebral arteries. CONCLUSION: Mild atherosclerotic disease of the posterior cerebral arteries without severe stenosis. Hypoplastic left posterior communicating artery. Live Hill MD on September 07, 2017 at 16:57 Board Certified Radiologist. This report was verified electronically.
--- NOTE | 2017-09-07 17:02 | RADRPT ---
EXAM DATE/TIME: 09/07/2017 16:28 [facility] COMPARISON: MRA BRAIN W/O CONTRAST, September 07, 2017, 16:28. MRI BRAIN W/O CONTRAST, September 06, 2017, 16:13. CT BRAIN W/O CONTRAST, September 06, 2017, 14:21. INDICATIONS : CVA. MEDICAL HISTORY : Hypertension. Cerebrovascular accident. SURGICAL HISTORY : None. ENCOUNTER: Subsequent ACUITY: 2 day PAIN SCORE: 3/10 LOCATION: cranial TECHNIQUE: Multiplanar, multisequence MRI of the brain was performed without contrast. FINDINGS: Diffusion weighted images demonstrate no evidence for acute infarction. There is a focal area of bloo maria dolores artifact in the right cerebellar hemisphere which has corresponding decreased T2 signal characte ristic of hemosiderin deposition. There is adjacent focus of increased flair and T2 signal. There is no midline shift or mass effect. Remote pontine and basal ganglia lacunar infarcts are identified wit h diffuse volume loss. This includes prominent severe carotid spaces. CONCLUSION: There is evidence of a remote bleed with gliosis in the right cerebellar hemisphere. Remote lacunar i nfarcts and mild periventricular white matter disease identified. No evidence for acute infarction. Laure sol. Live Hill MD on September 07, 2017 at 16:58 Board Certified Radiologist. This report was verified electronically.
[2017-09-07 19:26] LABS: FREE T4 0.87 NG/DL (0.76-1.46)
[2017-09-07] MEDS: PRAVASTATIN SOD 40 MG TAB PO SCH (20:52)
[2017-09-07] MEDS: LISINOPRIL 10 MG TAB PO SCH (20:52)
[2017-09-07] MEDS: SODIUM CHLORIDE 0.9% FLUSH 10 ML FLUSH IVF PRN (20:53)
[2017-09-08] VITALS: BP 165/78; PULSE 77; RESP 18; TEMP 97.3; O2SAT 95
[2017-09-08 04:00] VITALS: BP 189/77; PULSE 78; RESP 18; TEMP 97.3; O2SAT 95
[2017-09-08] MEDS: SODIUM CHLORIDE 0.9% FLUSH 10 ML FLUSH IVF PRN (07:57)
[2017-09-08] MEDS: ASPIRIN 325 MG TAB PO SCH (07:57)
[2017-09-08 08:00] VITALS: BP 189/100; PULSE 77; RESP 18; TEMP 98.6; O2SAT 93
[2017-09-08] MEDS: INSULIN ASPART SUPPLEMENTAL SCALE SQ SCH (08:00)
[2017-09-08 08:08] VITALS: O2SAT 92
[2017-09-08 09:00] VITALS: BP 165/94
[2017-09-08] MEDS ORDERED: HYDROCHLOROTHIAZIDE 25 MG TAB PO SCH (09:00)
[2017-09-08] MEDS: SODIUM CHLORIDE 0.9% FLUSH 5 ML FLUSH IV FLUSH SCH (09:00)
[2017-09-08] MEDS: LISINOPRIL 10 MG TAB PO SCH (09:00)
[2017-09-08 12:00] VITALS: BP 161/95; PULSE 84; RESP 16; TEMP 98.7; O2SAT 94
--- NOTE | 2017-09-08 12:18 | HM ---
Date Performed: 09/06/2017 Time Performed: 19:47:00 HOOKUP DATE: 09/06/17 07:47:00 PM Fri ANALYSIS START TIME: 09/06/2017 7:52:00 PM ANALYSIS END TIME: 09/07/2017 4:19:20 PM PATIENT AGE: 77 PATIENT HEIGHT PATIENT WEIGHT DRUG LIST PATIENT DIAGNOSIS TEST NARRATIVE: The patient's average heart rate was 76 BPM. No episodes of tachycardia wer e noted. No episodes of bradycardia were noted. No pauses exceeding 2.0 seconds were noted. 78 ventricular ectopics, which represented < 1% of the total beat count, were noted. The highest olive tricular ectopic frequency occurred from 06:00 AM to 07:00 AM Sat. During this time 10 VE(s) occurre d. Ventricular ectopics were observed as 73 isolated beat(s), as 1 couplet(s) and as 1 run(s). 4 203 supraventricular ectopics, which represented 5% of the total beat count, were noted. The highest supraventricular ectopic frequency occurred from 12:00 AM to 01:00 AM Sat. During this time 359 SVE (s) occurred. Multiple episodes of ST depression (defined as -1.0 mm or more) were noted in [place] 1. The maximum depression of -2.0 mm occurred at 03:23:21 AM Sat. In channel 2, a single episod e of ST depression (defined as -1.0 mm or more) occurred at 09:09:12 PM Fri with a maximum depression of -1.4 mm. No episodes of ST depression (defined as -1.0 mm or more) were noted in channel 3. TEST INTERPRETATION: Holter demonstrates Sinus rhythm . Sinus tachycardia of up to 112 beats per minute and sinus bradycardia of up to 56 beats per minute were noted. There were occassional PACs noted. One three beat run of ventricular ectopy was seen. Signed by : Alejo Cole
[2017-09-08] MEDS ORDERED: ASPI81TA23 PO (12:38)
[2017-09-08] MEDS ORDERED: HYDR25TA5 PO (12:38)
[2017-09-08] MEDS ORDERED: LISI10TA3 PO (12:38)
[2017-09-08] MEDS ORDERED: FISHCAP4 PO (12:38)
--- NOTE | 2017-09-08 13:20 | HHI.PR ---
Subjective Remarks Patient continues to have mild diplopia that goes away when he covers his left eye. Objective Vitals Vital Signs Date Time Temp Pulse Resp B/P (MAP) Pulse Ox O2 Delivery O2 Flow Rate FiO2 09/08/17 12:00 98.7 84 16 161/95 (117) 94 09/08/17 09:00 165/94 (117) 09/08/17 08:08 92 Nasal Cannula 09/08/17 08:00 98.6 77 18 189/100 (129) 93 09/08/17 04:00 97.3 78 18 189/77 (114) 95 09/08/17 00:00 97.3 77 18 165/78 (107) 95 09/07/17 20:00 98.6 80 18 189/89 (122) 95 09/07/17 20:00 79 09/07/17 19:50 94 21 09/07/17 15:47 98.6 78 16 178/100 (126) 94 I/O 09/07/17 09/07/17 09/07/17 09/08/17 09/08/17 09/08/17 07:00 15:00 23:00 07:00 15:00 23:00 Intake Total 240 ml 720 ml 120 ml Output Total 900 ml 350 ml Balance -660 ml 370 ml 120 ml Intake Oral 240 ml 720 ml 120 ml Output Urine Total 900 ml 350 ml # Voids 2 1 # Bowel Movements 0 Result Diagram: 09/06/17 1410 09/06/17 1410 Objective Remarks GENERAL: This is a well-nourished, well-developed patient, in no apparent distress. SKIN: No rashes, ecchymoses or lesions. Cool and dry. HEAD: Atraumatic. Normocephalic. EYES: Pupils equal round and reactive. Very subtle inability to fully abduct the right eye. No scleral icterus. No injection or drainage. ENT: Throat without erythema, tonsillar hypertrophy or exudate. Uvula midline. Airway patent. NECK: Trachea midline. No JVD or lymphadenopathy. Supple, nontender, no meningeal signs. CARDIOVASCULAR: Regular rate and rhythm without murmurs, gallops, or rubs. RESPIRATORY: Clear to auscultation. Breath sounds equal bilaterally. No wheezes , rales, or rhonchi. GASTROINTESTINAL: Abdomen soft, non-tender, nondistended. MUSCULOSKELETAL: Extremities without clubbing, cyanosis, or edema. NEUROLOGICAL: Awake and alert and oriented. A/P Problem List: (1) Diplopia ICD Code: H53.2 - Diplopia (2) Cranial nerve palsy ICD Code: H49.20 - Sixth [abducent] nerve palsy, unspecified eye (3) Hypertension, accelerated ICD Code: I10 - Essential (primary) hypertension (4) Borderline type 2 diabetes mellitus ICD Code: R73.03 - Prediabetes Assessment and Plan -Diplopia due to mild right sixth nerve palsy. - Initial MRI read as Acute left thalamic CVA -discussed with Dr. Guerrero who reviewed the MRI and did not feel this was an acute stroke however MRI with poor quality image. Repeat brain MRI showed old remote bleed with gliosis in the right cerebellar hemisphere and remote lacunar infarcts and mild periventricular white matter disease. Doppler carotid is negative. Head MRA shows mild atherosclerotic disease. Holter results pending. lipid profile reviewed LDL 93-Dr. Guerrero recommends fish oil and baby aspirin. Follow-up with him in his office in 4 weeks. -Borderline DM - a1c 6.4. place on ADA diet. -Accelerated Hypertension. Start lisinopril 10 mg BID, HCTZ 25 mg daily. -Mild anemia. Follow-up outpatient. -DVT prophylaxis with SCDs Discharge home today. Discharge planning and coordination of care time 35 minutes. Linnea Clements MD Sep 08, 2017 13:20
[2017-09-09 13:26] LABS: ANA SCREEN NEG (NEG)
== END 2017-09-08 13:49 | disposition home or self-care (01) | DRG 123 ==
LOC: PHED 13:42 → PHEDA 17:01 → PH3B 17:54
PROVIDERS: ADMIT Family Medicine; ATTEND Family Medicine
DX: H49.21 Sixth [abducent] nerve palsy, right eye (principal); G93.89 Other specified disorders of brain; D64.9 Anemia, unspecified; I10 Essential (primary) hypertension; H53.2 Diplopia; Z86.73 Personal history of transient ischemic attack (TIA), and cerebral infarction without residual deficits; R73.03 Prediabetes
CPT/HCPCS: 70450; 70544; 70551; 80053; 80061; 82607; 82948; 83036; 83519; 83921; 84207; 84425; 84439; 84443; 85025; 85610; 85652; 85730; 86038; 86140; 86255; 86592; 93225; 93226; 93306; 93880; 96374